=== PATIENT | female | born 1995 | race African-American/Black ===

== ENCOUNTER 2016-12-29 14:07 | Emergency (ER) | payer SELFPAY ==
[~2016-12-29] VITALS: Ht 154.9 cm; Wt 56.2 kg
[2016-12-29 14:26] VITALS: BP 133/75
[2016-12-29] MEDS ORDERED: MOME45CR2 TP (14:41)
--- NOTE | 2016-12-29 14:41 | PHYS DOC ---
Past Medical History Past Medical History: Other Additional Past Medical Histor: EZCEMA Past Surgical History: Appendectomy Alcohol Use: None Drug Use: None Adult General Chief Complaint Chief Complaint: SKIN RASH/ABSCESS [facility] HPI Patient is a 21 year old female with a history of eczema presents to the ED complaining of rash to hands and arms x 2 days. States rash is consistent with eczema exacerbations. Requesting prescription for mometasone. Denies fever, headache, chest pain, shortness of breath or dizziness. Review of Systems Review of Systems Constitutional: Denies fever or chills [] Eyes: Denies change in visual acuity, redness, or eye pain [] HENT: Denies nasal congestion or sore throat [] Respiratory: Denies cough or shortness of breath [] Cardiovascular: No additional information not addressed in HPI [] GI: Denies abdominal pain, nausea, vomiting, bloody stools or diarrhea [] : Denies dysuria or hematuria [] Musculoskeletal: Denies back pain or joint pain [] Integument: Complains of rash to hands. Denies skin lesions [] Neurologic: Denies headache, focal weakness or sensory changes [] Endocrine: Denies polyuria or polydipsia [] Allergies Allergies Allergies Coded Allergies Type Severity Reaction Last Updated Verified Penicillins Allergy Intermediate "I'M JUST ALLERGIC" 12/29/16 Yes Physical Exam Physical Exam Constitutional: Well developed, well nourished, no acute distress, non-toxic appearance. [] HENT: Normocephalic, atraumatic, bilateral external ears normal, oropharynx moist, no oral exudates, nose normal. [] Eyes: PERRLA, EOMI, conjunctiva normal, no discharge. [] Neck: Normal range of motion, no tenderness, supple, no stridor. [] Cardiovascular:Heart rate regular rhythm, no murmur [] Lungs & Thorax: Bilateral breath sounds clear to auscultation [] Abdomen: Bowel sounds normal, soft, no tenderness, no masses, no pulsatile masses. [] Skin: Warm, dry, no erythema. ERYTHEMATOUS RASH TO HANDS AND ARMS CONSISTENT WITH ECZEMA. [] Back: No tenderness, no CVA tenderness. [] Extremities: No tenderness, no cyanosis, no clubbing, ROM intact, no edema. [] Neurologic: Alert and oriented X 3, normal motor function, normal sensory function, no focal deficits noted. [] Psychologic: Affect normal, judgement normal, mood normal. [] Current Patient Data Vital Signs Vital Signs Date Time Temp Pulse Resp B/P (MAP) Pulse Ox O2 Delivery O2 Flow Rate FiO2 12/29/16 14:26 98.5 89 18 133/75 (94) 98 Room Air 98.5 EKG EKG [] Radiology/Procedures Radiology/Procedures [] Course & Med Decision Making Course & Med Decision Making Pertinent Labs and Imaging studies reviewed. (See chart for details) [] Dragon Disclaimer Dragon Disclaimer This electronic medical record was generated, in whole or in part, using a voice recognition dictation system. Departure Departure Impression: Primary Impression: Eczema Disposition: 01 HOME, SELF-CARE Condition: STABLE Referrals: NO PCP (PCP) Patient Instructions: Eczema Scripts Mometasone Furoate (MOMETASONE FUROATE) 45 Gm Cream..g. 1 KEY TP DAILY, #45 GM 1 Refill Prov: USAMA BENITO 12/29/16 USAMA BENITO Dec 29, 2016 14:41
== END 2016-12-29 14:46 | disposition home or self-care (01) ==
LOC: ER 14:07
DX: L30.9 Dermatitis, unspecified (principal); Z88.0 Allergy status to penicillin
CPT/HCPCS: 99283

== ENCOUNTER 2020-03-12 14:20 | Emergency (ER) | payer SELFPAY ==
[~2020-03-12] VITALS: Ht 152.4 cm; Wt 65.0 kg
[~2020-03-12 14:20] MED LIST: MOME45CR3 TP
[2020-03-12 16:05] VITALS: BP 112/70
--- NOTE | 2020-03-12 16:19 | PHYS DOC ---
Past Medical History Past Medical History: Other Additional Past Medical Histor: ROJELIO Past Surgical History: Appendectomy Smoking Status: Never Smoker Alcohol Use: None Drug Use: None General Adult EDM: Chief Complaint: VAGINAL PROBLEM HPI: HPI: Patient is a 24 year old female who presents with for the last week she has been having white vaginal discharge that it has no smell. She states that her sexual partner had intercourse with someone else. He states he does not think that he has any STDs. She states that she wants to be checked for STDs, bacterial vaginosis and yeast. She states that she does not think that she has any and does not want to be treated today. Patient has a history of appendectomy and eczema. She denies abdominal pain, nausea, vomiting, urinary symptoms, painful sex, diarrhea, fever, back pain, cough, chest pain, shortness of breath. Review of Systems: Review of Systems: Constitutional: Denies fever or chills. [] Eyes: Denies change in visual acuity. [] HENT: Denies nasal congestion or sore throat. [] Respiratory: Denies cough or shortness of breath. [] Cardiovascular: Denies chest pain or edema. [] GI: Denies abdominal pain, nausea, vomiting, bloody stools or diarrhea. [] : Denies dysuria. +Vaginal Discharge[] Musculoskeletal: Denies back pain or joint pain. [] Integument: Denies rash. [] Neurologic: Denies headache, focal weakness or sensory changes. [] Endocrine: Denies polyuria or polydipsia. [] Lymphatic: Denies swollen glands. [] Psychiatric: Denies depression or anxiety. [] Heart Score: Risk Factors: Risk Factors: DM, Current or recent (<one month) smoker, HTN, HLP, family history of CAD, obesity. Risk Scores: Score 0 - 3: 2.5% MACE over next 6 weeks - Discharge Home Score 4 - 6: 20.3% MACE over next 6 weeks - Admit for Clinical Observation Score 7 - 10: 72.7% MACE over next 6 weeks - Early Invasive Strategies Allergies: Allergies: Allergies Coded Allergies Type Severity Reaction Last Updated Verified Penicillins Allergy Intermediate "I'M JUST ALLERGIC" 12/29/16 Yes Physical Exam: PE: Constitutional: Well developed, well nourished, no acute distress, non-toxic appearance. [] HENT: Normocephalic, atraumatic, bilateral external ears normal, oropharynx moist, no oral exudates, nose normal. [] Eyes: PERRLA, EOMI, conjunctiva normal, no discharge. [] Neck: Normal range of motion, no tenderness, supple, no stridor. [] Cardiovascular:Heart rate regular rhythm, no murmur [] Lungs & Thorax: Bilateral breath sounds clear to auscultation [] Abdomen: Bowel sounds normal, soft, no tenderness, no masses, no pulsatile masses. [] Skin: Warm, dry, no erythema, no rash. [] Back: No tenderness, no CVA tenderness. [] Extremities: No tenderness, no cyanosis, no clubbing, ROM intact, no edema. [] Neurologic: Alert and oriented X 3, normal motor function, normal sensory function, no focal deficits noted. [] Psychologic: Affect normal, judgement normal, mood normal. Normal Physical Exam [] Current Patient Data: Labs: Laboratory Tests Test 03/12/20 16:08 POC Urine HCG, Qualitative Hcg negative (Negative) Vital Signs: Vital Signs Date Time Temp Pulse Resp B/P (MAP) Pulse Ox O2 Delivery O2 Flow Rate FiO2 03/12/20 15:19 98.7 78 18 112/70 (84) 96 Room Air 98.7 EKG: EKG: [] Radiology/Procedures: Radiology/Procedures: [] Course & Med Decision Making: Course & Med Decision Making Pertinent Labs and Imaging studies reviewed. (See chart for details) See HPI. Speaks in full complete sentences. Ambulatory with a steady gait. Abdomen soft and nontender. Skin pink warm and dry. Alert and oriented x4. Patient is educated that the chlamydia and gonorrhea will come back in 48 hours and she will be called only if they are positive. She is educated that if they are positive that she will need to come back in to be treated. Patient states her agreement to this. Pelvic Exam: Material Expeditor present Abdomen: Nontender External Genitalia: Normal Skin Speculum: Normal vaginal mucosa, white cervical discharge Bimanual: No adnexal masses or tenderness, No CMT Wet prep shows bacterial vaginosis. She will be given MetroGel and she can follow-up with a i o psychologist if needed. [] Arabella Disclaimer: Arabella Disclaimer: This electronic medical record was generated, in whole or in part, using a voice recognition dictation system. Departure Departure Impression: Primary Impression: Bacterial vaginosis Disposition: 01 DC HOME SELF CARE/HOMELESS Condition: STABLE Referrals: NO PCP (PCP) CARMENZA CARLOS Jr, MD Patient Instructions: Bacterial Vaginosis, [id number] Additional Instructions: Follow-up with i o psychologist if needed. You will be called in 48 hours only if your chlamydia or gonorrhea comes back positive. Take medication as prescribed. Scripts Metronidazole (METRONIDAZOLE) 500 Mg Tablet 1 TAB PO BID for 7 Days, #14 TAB 0 Refills Prov: POONAM CHRISTINA APRN 03/12/20 POONAM CHRISTINA APRN Mar 12, 2020 16:19
[2020-03-12 16:32] LABS: BILIRUBIN,URINE SMALL (NEG); CLARITY,URINE CLEAR; COLOR,URINE YELLOW; NITRITE,URINE NEGATIVE (NEG); PH,URINE 6.5 (<5.0-8.0); PROTEIN,URINE 30 mg/dL (NEG-TRACE); UROBILINOGEN,URINE 0.2 mg/dL (0.2 mg/dL)
[2020-03-12 16:46] LABS: BACTERIA,URINE MODERATE /HPF (0-FEW)
[2020-03-12] MEDS ORDERED: METR70GE14 VG (16:46)
[2020-03-12 16:47] LABS: RBC,URINE 0 /HPF (0-2)
[2020-03-12] MEDS ORDERED: METR-34 PO (17:36)
[2020-03-13 19:09] LABS: GC PROBE Negative (Negative)
== END 2020-03-12 17:46 | disposition home or self-care (01) ==
LOC: ER 14:20
DX: N76.0 Acute vaginitis (principal); B96.89 Other specified bacterial agents as the cause of diseases classified elsewhere; Z90.89 Acquired absence of other organs
CPT/HCPCS: 81001; 81025; 87086; 87491; 87591; 99284; Q0111